=== PATIENT | male | born 1985 | race African-American/Black ===

== ENCOUNTER → 2019-03-21 | Emergency (ER) | payer MEDICARE, MEDICAID ==
[~2019-03-21] VITALS: Ht 167.6 cm; Wt 71.0 kg
[~2019-03-21] MED LIST: BACITRACIN 15GM TUBE TOP SCH; BACITRACIN ZINC OINT UDPKT TOP ONE; LIDOCAINE 1%/EPI 1:100,000 10 ML VIAL IJ ONE; LIDOCAINE HCL/EPINEPHRINE 1%-EPI 1:100,000 20 ML VIAL INFIL NR; LIDOCAINE HCL/PF 1% 10 MG/ML 5ML VIAL IJ ONE
[2019-03-22 01:03] VITALS: BP 123/92
== END | disposition home or self-care (01) ==
LOC: ER 23:55
DX: S63.267A Dislocation of metacarpophalangeal joint of left little finger, initial encounter (principal); S01.81XA Laceration without foreign body of other part of head, initial encounter; S11.81XA Laceration without foreign body of other specified part of neck, initial encounter; S01.312A Laceration without foreign body of left ear, initial encounter; F12.10 Cannabis abuse, uncomplicated; Z88.8 Allergy status to other drugs, medicaments and biological substances; Y08.89XA Assault by other specified means, initial encounter; Y93.89 Activity, other specified; Y92.89 Other specified places as the place of occurrence of the external cause; Y99.8 Other external cause status
CPT/HCPCS: 12015; 26770; 29130; 73130; 99284; J3490

== ENCOUNTER 2019-04-06 08:38 | Emergency (ER) | payer MEDICARE, MEDICAID ==
[~2019-04-06] VITALS: Ht 167.6 cm; Wt 72.0 kg
[2019-04-06 09:02] VITALS: BP 130/90
== END 2019-04-06 09:42 | disposition home or self-care (01) ==
LOC: ER 08:38
DX: Z48.02 Encounter for removal of sutures (principal)
CPT/HCPCS: 99281

== ENCOUNTER 2019-06-18 20:15 | Emergency (ER) | payer MEDICARE, MEDICAID ==
[~2019-06-18] VITALS: Ht 167.6 cm; Wt 73.0 kg
[2019-06-18 23:47] VITALS: BP 119/69
== END 2019-06-18 23:54 | disposition home or self-care (01) ==
LOC: ER 20:15
DX: J34.2 Deviated nasal septum (principal); F12.10 Cannabis abuse, uncomplicated
CPT/HCPCS: 99281

== ENCOUNTER 2019-11-26 19:32 | Emergency (ER) | payer MEDICARE, MEDICAID ==
[~2019-11-26] VITALS: Ht 182.9 cm; Wt 67.0 kg
[2019-11-26 19:47] VITALS: BP 121/76
[2019-11-26] MEDS ORDERED: HYDROCODONE/ACETAMINOPHEN 5/325MG TABLET PO ONE (22:15)
== END 2019-11-26 22:31 | disposition home or self-care (01) ==
LOC: ER 19:32
DX: S62.623A Displaced fracture of middle phalanx of left middle finger, initial encounter for closed fracture (principal); X58.XXXA Exposure to other specified factors, initial encounter; Y93.89 Activity, other specified; Y92.89 Other specified places as the place of occurrence of the external cause; Y99.8 Other external cause status; F12.10 Cannabis abuse, uncomplicated
CPT/HCPCS: 73140; 99283

== ENCOUNTER 2020-02-19 09:23 | Emergency (ER) | payer MEDICARE, MEDICAID ==
[~2020-02-19] VITALS: Ht 167.6 cm; Wt 73.0 kg
[2020-02-19] MEDS ORDERED: ACETAMINOPHEN 500MG TABLET PO ONE (10:00)
[2020-02-19] MEDS ORDERED: BACITRACIN ZINC OINT UDPKT TOP ONE (10:00)
[2020-02-19] MEDS ORDERED: FLUORESCEIN SODIUM 1MG/STRIP BOTHEYE ONE (13:00)
[2020-02-19] MEDS ORDERED: TETRACAINE 0.5% OPHTH DROPS 4ML BOTHEYE ONE (13:00)
[2020-02-19 13:34] VITALS: BP 123/79
== END 2020-02-19 13:35 | disposition home or self-care (01) ==
LOC: ER 09:23
DX: S02.2XXA Fracture of nasal bones, initial encounter for closed fracture (principal); S05.8X2A Other injuries of left eye and orbit, initial encounter; S05.8X1A Other injuries of right eye and orbit, initial encounter; S00.81XA Abrasion of other part of head, initial encounter; F12.10 Cannabis abuse, uncomplicated; Y04.0XXA Assault by unarmed brawl or fight, initial encounter; Y93.89 Activity, other specified; Y92.89 Other specified places as the place of occurrence of the external cause
CPT/HCPCS: 70486; 99285

== ENCOUNTER 2020-02-27 01:55 | Emergency (ER) | payer MEDICARE, MEDICAID ==
[~2020-02-27] VITALS: Ht 167.6 cm; Wt 73.0 kg
[2020-02-27 01:59] VITALS: BP 150/92
== END 2020-02-27 02:07 | disposition left against medical advice (07) ==
LOC: ER 01:55
DX: Z53.21 Procedure and treatment not carried out due to patient leaving prior to being seen by health care provider (principal)

== ENCOUNTER 2020-05-01 06:21 | Emergency (ER) | payer MEDICARE, MEDICAID ==
[~2020-05-01] VITALS: Ht 175.3 cm; Wt 75.0 kg
[2020-05-01 06:25] VITALS: BP 139/91
[2020-05-01] MEDS ORDERED: LIDOCAINE HCL/PF 1% 10 MG/ML 5ML VIAL IJ ONE (07:30)
[2020-05-01] MEDS ORDERED: ACETAMINOPHEN 325MG TABLET PO ONE (08:00)
== END 2020-05-01 09:35 | disposition home or self-care (01) ==
LOC: ER 06:21
DX: S01.81XA Laceration without foreign body of other part of head, initial encounter (principal); S02.2XXA Fracture of nasal bones, initial encounter for closed fracture; W01.0XXA Fall on same level from slipping, tripping and stumbling without subsequent striking against object, initial encounter; Y93.89 Activity, other specified; Y92.89 Other specified places as the place of occurrence of the external cause
CPT/HCPCS: 12014; 70450; 99284; J3490

== ENCOUNTER 2020-05-17 09:34 | Emergency (ER) | payer MEDICARE, MEDICAID ==
[~2020-05-17] VITALS: Ht 167.6 cm; Wt 73.0 kg
[2020-05-17 09:59] VITALS: BP 136/78
[2020-05-17] MEDS ORDERED: LIDOCAINE 1%/EPI 1:100,000 10 ML VIAL IJ ONE (10:15)
[2020-05-17] MEDS ORDERED: BACITRACIN ZINC OINT UDPKT TOP ONE (10:15)
[2020-05-17] MEDS ORDERED: ACETAMINOPHEN 325MG TABLET PO ONE (10:45)
[2020-05-17] MEDS ORDERED: TETANUS, DIPHTHERIA, PERTUSSIS VAC/PF 0.5ML (>7YR OLD) IM ONE (12:45)
== END 2020-05-17 14:25 | disposition home or self-care (01) ==
LOC: ER 09:38
DX: S01.81XA Laceration without foreign body of other part of head, initial encounter (principal); F12.10 Cannabis abuse, uncomplicated; I49.9 Cardiac arrhythmia, unspecified; W18.30XA Fall on same level, unspecified, initial encounter; Y93.89 Activity, other specified; Y92.89 Other specified places as the place of occurrence of the external cause; Y99.8 Other external cause status
CPT/HCPCS: 12013; 73070; 73090; 90471; 90715; 93005; 99284; J3490

== ENCOUNTER 2020-06-09 15:06 | Emergency (ER) | payer MEDICARE, MEDICAID ==
[~2020-06-09] VITALS: Ht 167.6 cm; Wt 71.0 kg
[2020-06-09 15:09] VITALS: BP 139/97
== END 2020-06-09 16:39 | disposition home or self-care (01) ==
LOC: ER 15:06
DX: S01.81XD Laceration without foreign body of other part of head, subsequent encounter (principal); X58.XXXD Exposure to other specified factors, subsequent encounter; F12.10 Cannabis abuse, uncomplicated
CPT/HCPCS: 99281

== ENCOUNTER 2020-07-07 08:44 | Emergency (ER) | payer MEDICARE, MEDICAID ==
[~2020-07-07] VITALS: Ht 167.6 cm; Wt 68.0 kg
[2020-07-07] MEDS ORDERED: BACITRACIN ZINC OINT UDPKT TOP ONE (09:30)
[2020-07-07] MEDS ORDERED: LIDOCAINE HCL/PF 1% 10 MG/ML 5ML VIAL IJ ONE (09:30)
[2020-07-07 11:23] VITALS: BP 132/75
== END 2020-07-07 11:26 | disposition home or self-care (01) ==
LOC: ER 08:44
DX: S01.511A Laceration without foreign body of lip, initial encounter (principal); W18.39XA Other fall on same level, initial encounter; Y93.89 Activity, other specified; Y92.89 Other specified places as the place of occurrence of the external cause; Y99.8 Other external cause status; H54.7 Unspecified visual loss; F12.10 Cannabis abuse, uncomplicated
CPT/HCPCS: 40650; 99284; J3490; 99283

== ENCOUNTER 2020-07-18 00:02 | Emergency (ER) | payer MEDICAID, MEDICARE ==
[~2020-07-18] VITALS: Ht 167.6 cm; Wt 73.0 kg
[2020-07-18 01:01] VITALS: BP 144/90
[2020-07-18] MEDS ORDERED: TETANUS, DIPHTHERIA, PERTUSSIS VAC/PF 0.5ML (>7YR OLD) IM ONE (02:00)
[2020-07-18] MEDS ORDERED: KETOROLAC 60MG/2ML VIAL IM ONE (03:30)
== END 2020-07-18 03:50 | disposition home or self-care (01) ==
LOC: ER 00:02
DX: S06.0X9A Concussion with loss of consciousness of unspecified duration, initial encounter (principal); S02.2XXA Fracture of nasal bones, initial encounter for closed fracture; S40.812A Abrasion of left upper arm, initial encounter; S40.811A Abrasion of right upper arm, initial encounter; F12.10 Cannabis abuse, uncomplicated; Z98.890 Other specified postprocedural states; Y00.XXXA Assault by blunt object, initial encounter; Y93.89 Activity, other specified; Y92.018 Other place in single-family (private) house as the place of occurrence of the external cause
CPT/HCPCS: 70450; 73090; 96372; 99284; J1885

== ENCOUNTER 2020-08-03 10:44 | Emergency (ER) | payer MEDICARE, MEDICAID ==
[~2020-08-03] VITALS: Ht 167.6 cm; Wt 69.0 kg
[2020-08-03] MEDS ORDERED: BACITRACIN ZINC OINT UDPKT TOP ONE (11:45)
[2020-08-03] MEDS ORDERED: TETANUS, DIPHTHERIA, PERTUSSIS VAC/PF 0.5ML (>7YR OLD) IM ONE (11:45)
[2020-08-03] MEDS ORDERED: LIDOCAINE HCL/EPINEPHRINE 1%-EPI 1:100,000 20 ML VIAL INFIL ONE (12:30)
[2020-08-03 14:57] VITALS: BP 131/80
== END 2020-08-03 14:59 | disposition home or self-care (01) ==
LOC: ER 10:58
DX: S01.511A Laceration without foreign body of lip, initial encounter (principal); S62.395A Other fracture of fourth metacarpal bone, left hand, initial encounter for closed fracture; F12.10 Cannabis abuse, uncomplicated; H54.7 Unspecified visual loss; W01.198A Fall on same level from slipping, tripping and stumbling with subsequent striking against other object, initial encounter; Y93.89 Activity, other specified; Y92.89 Other specified places as the place of occurrence of the external cause
CPT/HCPCS: 73130; 99283

== ENCOUNTER 2020-08-13 | Emergency (ER) | payer MEDICARE, MEDICAID ==
[~2020-08-13] VITALS: Ht 167.6 cm; Wt 70.0 kg
[2020-08-13 03:00] VITALS: BP 130/77
== END 2020-08-13 03:00 | disposition home or self-care (01) ==
LOC: ER
DX: S01.511D Laceration without foreign body of lip, subsequent encounter (principal); F12.10 Cannabis abuse, uncomplicated; Z48.02 Encounter for removal of sutures; Z98.890 Other specified postprocedural states; X58.XXXD Exposure to other specified factors, subsequent encounter
CPT/HCPCS: 99281

== ENCOUNTER 2020-10-29 13:41 | Emergency (ER) | payer MEDICARE, MEDICAID ==
[~2020-10-29] VITALS: Ht 167.6 cm; Wt 68.0 kg
[2020-10-29 14:50] VITALS: BP 136/88
== END 2020-10-29 14:51 | disposition home or self-care (01) ==
LOC: ER 13:41
DX: Z48.02 Encounter for removal of sutures (principal); F12.10 Cannabis abuse, uncomplicated; Z98.890 Other specified postprocedural states
CPT/HCPCS: 99281

== ENCOUNTER 2021-03-05 00:25 | Emergency (ER) | payer MEDICARE, MEDICAID ==
[~2021-03-05] VITALS: Ht 167.6 cm; Wt 68.0 kg
[2021-03-05] MEDS ORDERED: IBUPROFEN 600MG TABLET PO ONE (03:15)
[2021-03-05 04:09] VITALS: BP 139/84
== END 2021-03-05 04:10 | disposition home or self-care (01) ==
LOC: ER 00:25
DX: S09.8XXA Other specified injuries of head, initial encounter (principal); S00.01XA Abrasion of scalp, initial encounter; H54.7 Unspecified visual loss; W01.0XXA Fall on same level from slipping, tripping and stumbling without subsequent striking against object, initial encounter; Y93.9 Activity, unspecified; Y92.9 Unspecified place or not applicable; Z98.890 Other specified postprocedural states
CPT/HCPCS: 99282